=== PATIENT | female | born 1950 | race Caucasian/White ===

== ENCOUNTER 2021-10-27 20:12 | Emergency (ER) | payer BC, MEDICARE ==
[2021-10-27 20:55] LABS: HEMOGLOBIN 12.9 gm/dl (12.3-15.3); RED BLOOD COUNT 4.44 M/UL (4.00-5.10); WHITE BLOOD COUNT 7.6 K/UL (4.5-11.0)
[2021-10-27] MEDS ORDERED: CEFDINIR300 MG PO (23:51)
[2021-10-28 00:07] LABS: BORDETELLA PARAPERTUSSIS Not Detected (Not Detectd); BORDETELLA PERTUSSIS Not Detected (Not Detectd); CHLAMYDIA PNEUMONIAE Not Detected (Not Detectd); CORONAVIRUS HKU1 Not Detected (Not Detectd); CORONAVIRUS NL63 Not Detected (Not Detectd); CORONAVIRUS OC43 Not Detected (Not Detectd); CORONOAVIRUS 229E Not Detected (Not Detectd); HUMAN METAPNEUMOVIRUS Not Detected (Not Detectd); HUMAN RHINOVIRUS/ENTEROVIRUS Not Detected (Not Detectd); INFLUENZA A Not Detected (Not Detectd); INFLUENZA B Not Detected (Not Detectd); MYCOPLASMA PNEUMONIAE Not Detected (Not Detectd); PARAINFLUENZA VIRUS 1 Not Detected (Not Detectd); PARAINFLUENZA VIRUS 2 Not Detected (Not Detectd); PARAINFLUENZA VIRUS 3 Not Detected (Not Detectd); PARAINFLUENZA VIRUS 4 Not Detected (Not Detectd); RESPIRATORY SYNCYTIAL VIRUS Not Detected (Not Detectd)
[2021-10-28 01:03] LABS: SARS-CoV-2 NOT DETECTED (Not Detectd)
== END 2021-10-28 00:03 | disposition home or self-care (01) ==
LOC: ER1 20:12
PROVIDERS: Family Medicine; Physician Assistant
DX: B34.9 Viral infection, unspecified (principal); Z20.822 Contact with and (suspected) exposure to COVID-19
CPT/HCPCS: 71045; 80053; 81001; 82550; 82553; 83605; 83735; 83880; 84100; 84484; 85025; 85610; 85652; 85730; 86140; 87040; 87086; 87633; 99284; J0696

== ENCOUNTER → 2021-11-18 | Day surgery (SDC) | payer BC, MEDICARE ==
[~2021-11-18] MED LIST: AUGMENTIN 500-1 EACH PO; AUGMENTIN 500-500 MG PO; CEFDINIR300 MG PO; CELEBREX200 MG PO; DILTIAZEM 24HR240 M1 PO; HYDROCHLOROTHIA25 MG PO; NAPROXEN500 MG PO; PROAIR HFA8.5 GM INH
== END | disposition home or self-care (01) ==
LOC: OR 08:15
DX: L02.611 Cutaneous abscess of right foot (principal); I96 Gangrene, not elsewhere classified; K21.9 Gastro-esophageal reflux disease without esophagitis; I10 Essential (primary) hypertension; E78.5 Hyperlipidemia, unspecified; M06.9 Rheumatoid arthritis, unspecified; Z87.891 Personal history of nicotine dependence; Z79.899 Other long term (current) drug therapy
CPT/HCPCS: J0690; J2250; J3010